=== PATIENT | female | born 2000 | race Caucasian/White ===

== ENCOUNTER 2024-01-28 11:24 | Emergency (ER) | payer MEDICAID, SELFPAY ==
[2024-01-28 11:27] VITALS: BP 127/88; PULSE 87; RESP 16; TEMP 37.1; O2SAT 96; BMI 15.0
--- NOTE | 2024-01-28 12:13 | ED_ITS ---
HPI - Wound/Laceration General Chief Complaint: Wound/Laceration Stated Complaint: r hand laceration Time Seen by Provider: 01/28/24 11:46 Source: patient Mode of arrival: ambulatory Limitations: no limitations History of Present Illness ED Provider: MIRYAM Farmer HPI narrative: 23 yo F presents w/ lac to her right hand reports she cut it on metal can when she was pushing trash down into trash bag. Reports tetanus UTD. Denies numbness, tinglig, difficulties moving fingers, fevers, chills. This happened 30 mins prior to arrival Related Data Allergies Allergy/AdvReac Type Severity Reaction Status Date / Time No Known Allergies Allergy Verified 01/28/24 11:29 Review of Systems Review of Systems: Yes all other systems are reviewed and are negative PMFSH Past Medical History Attestation statement: The following information was validated with the patient. Source: old records reviewed and nursing notes reviewed Physical Exam Vital Signs: Vital Signs: Last Vital Signs Temp 98.7 F 01/28/24 11:27 Pulse 87 01/28/24 11:27 Resp 16 01/28/24 11:27 BP 127/88 01/28/24 11:27 Pulse Ox 96 01/28/24 11:27 O2 Del Method Room Air 01/28/24 11:27 BMI result Body Mass Index 15.0 vss Appearance: Alert.? Oriented X3.? No acute cardiopulmonary distress distress.? Head: Normocephalic, atraumatic, no step-offs or deformities CVS: Pulses normal.? Respiratory: No respiratory distress.? Abdomen: Soft and nontender.? Skin: ? Normal skin color. + superficial lac 1 cm between 1st and second digit webspace very superficial involving only the epidermis. 2+ radial pulses equal and b/l. Normal distal sensation b/l. Normal hand front edger b/l Extremities: 5/5 strength to bilateral upper and lower extremities Neuro: Oriented X 3.? No motor deficit.? No sensory deficit. Course Reevaluation(s) Reevaluation #1: Dermabond applied no complocations dressing applied Advised to return w/ new or worsening sx. Time: 12:19 Medical Decision Making Medical Decision Making [facility] Narrative: 23 yo f presents w/ accidental lac Tetanus UTD PE Normal skin color. + superficial lac 1 cm between 1st and second digit webspace very superficial involving only the epidermis. 2+ radial pulses equal and b/l. Normal distal sensation b/l. Normal hand front edger b/. hx and pe w/ simple lac. No signs of fx, dislocaiton, nv compromise, threat to limb Plan- dermabond Differential Diagnosis Differential Diagnoses: The differential diagnosis associated with the presentation includes (hx and pe w/ simple lac. No signs of fx, dislocaiton, nv compromise, threat to limb ) Admission/Observation Consideration of admission/observation: Escalation of care including admission/observation considered Tests considered The following testing was considered but not selected: no signs of fx or dislocation no indication for xray Discharge Plan Discharge Clinical Impression: Laceration Patient Disposition: Home, Self-Care Additional Instructions: Take your medications as prescribed. If you were prescribed antibiotics today, it is important that you take your medication to their entirety, do not skip any doses, do not finish them early. Follow-up with your primary care provider this week. Return to the emergency department with new or worsening symptoms. In case of emergency call 911 Dont peel of the glue let it fall off on its own Referrals: Physician,None [Primary Care Provider] - 2 days Stand Alone Forms: Work/School Release
[2024-01-28 12:25] VITALS: BP 127/88; PULSE 87; RESP 16; TEMP 37.1; O2SAT 96
== END 2024-01-28 12:28 | disposition home or self-care (01) ==
PROVIDERS: Emergency Provider Emergency Medicine
DX: S61.411A Laceration without foreign body of right hand, initial encounter (principal); M79.641 Pain in right hand; W26.8XXA Contact with other sharp object(s), not elsewhere classified, initial encounter; Y93.89 Activity, other specified; Y92.89 Other specified places as the place of occurrence of the external cause; Y99.8 Other external cause status
CPT/HCPCS: 12001; 99282; 99284